=== PATIENT | male | born 1970 | race Caucasian/White ===

== ENCOUNTER → 2020-04-11 | Outpatient (CLI) | payer OTHER ==
--- NOTE | 2020-04-11 09:42 | KCIC ---
MR of the left knee HISTORY: Left knee pain medially for one year. COMPARISON: None FINDINGS: The signal identified within the medial meniscus, with surface violation, as well as mild blunting. Findings are compatible with a tear, although prior surgery could result in this appearance if there is a corresponding history No evidence of lateral meniscal tear. Anterior and posterior cruciate ligaments are intact. Medial collateral ligament is intact. Iliotibial band unremarkable. Fibular collateral ligament, biceps femoris tendon and popliteus tendon are intact. Extensor mechanism is intact. Small amount of joint fluid. No significant Woodall's cyst. Organized appearing fluid collection in the soft tissues anterior to the distal patellar tendon, measures 5.0 cm wide by 1.3 cm AP by 3.2 cm height, would commonly represent bursitis, although hematoma in the setting of trauma or abscess in the setting of infection could be considered. No evidence of acute articular cartilage defect. No advanced DJD. No evidence of acute fracture. No aggressive bone destruction. IMPRESSION: 1. Medial meniscal tear, although prior meniscectomy could contribute to this appearance if there is a corresponding surgical history. 2. Fluid collection anterior to the distal patellar tendon, most likely prepatellar bursitis, in the absence of a history of trauma or infection. Electronically signed by: Enrique Gant MD (04/11/2020 9:39 AM) [id number]
== END | disposition home or self-care (01) ==
LOC: KCIC MRI 07:51
PROVIDERS: ATTEND Chiropractor
DX: S83.242A Other tear of medial meniscus, current injury, left knee, initial encounter (principal); M25.462 Effusion, left knee; M70.52 Other bursitis of knee, left knee; X58.XXXA Exposure to other specified factors, initial encounter; Y93.89 Activity, other specified; Y92.89 Other specified places as the place of occurrence of the external cause; Y99.8 Other external cause status
CPT/HCPCS: 73721